=== PATIENT | male | born 1945 | race Hispanic/Latino ===

== ENCOUNTER 2017-06-23 09:00 | Inpatient (IN) | payer MEDICARE ==
[~2017-06-23] VITALS: Ht 160 cm; Wt 64.9 kg
[~2017-06-23 09:00] MED LIST: CLOP75TA32 PO; FOLI1TAB85 PO; NITR0.4T SL; PANT40TA25 PO; PIOG15TA66 PO; TRAZ-144 PO; UBID200C18 PO
[2017-06-24 10:02] LABS: APPEARANCE,URINE CLEAR (CLEAR); BILIRUBIN,URINE NEGATIVE (NEGATIVE); COLOR,URINE YELLOW (YELLOW); GLUCOSE, URINE (UA) NEGATIVE (NEGATIVE); KETONES,URINE 5 mg/dL (NEGATIVE); LEUKOCYTE ESTERASE ,URINE NEGATIVE (NEGATIVE); NITRATE,URINE NEGATIVE (NEGATIVE); OCCULT BLOOD,URINE NEGATIVE (NEGATIVE); PH,URINE 5.5 (5.0-8.0); PROTEIN,URINE NEGATIVE (NEGATIVE); UROBILINOGEN,URINE 0.2 mg/dL (0.2-1.0)
[2017-06-24 10:02] LABS: BASOPHILS % (AUTO) 0.7 % (0.0-5.0); EOSINOPHILS % (AUTO) 1.3 % (0.0-8.0); HEMATOCRIT 35.4 % (42-54); LYMPHOCYTES % (AUTO) 23.6 % (21.0-51.0); MEAN CORPUSCULAR HEMOGLOBIN 33.6 pg (27.0-33.0); MEAN CORPUSCULAR HGB CONC 35.5 g/dL (32.0-36.0); MEAN CORPUSCULAR VOLUME 94.6 fL (79-99); MONOCYTES % (AUTO) 8.9 % (3.0-13.0); NEUTROPHILS % (AUTO) 65.5 % (40.0-77.0); PLATELET COUNT (AUTO) 211 K/uL (130-400); RED BLOOD CELL COUNT(AUTO) 3.74 MIL/uL (4.50-6.20); RED CELL DISTRIBUTION WIDTH 13.7 % (11.0-15.5)
[2017-06-24 10:06] LABS: BACTERIA,URINE Rare /HPF (None Seen); RBC,URINE 0-1 /HPF (0-1); SQUAMOUS EPITHELIAL CELL,UR Rare /LPF (0-2); WBC,URINE 0-1 /HPF (0-1)
[2017-06-24 10:13] LABS: CREATININE 1.2 mg/dL (0.5-1.5); POTASSIUM 4.7 mmol/L (3.5-5.1)
[2017-06-24 10:17] VITALS: BP 148/71
[2017-06-24 10:20] LABS: INR 1.01 (0.85-1.15); PROTHROMBIN TIME 10.6 SEC (9.6-11.6)
[2017-06-24] MEDS ORDERED: METO25TA6 PO (10:44)
[2017-06-24] MEDS ORDERED: CETI10TA57 PO (10:44)
[2017-06-24] MEDS ORDERED: CYAN-35 PO (10:44)
[2017-06-24] MEDS ORDERED: ASPI-1026 PO (10:44)
[2017-06-24] MEDS ORDERED: ATOR40TA71 PO (10:44)
[2017-06-24] MEDS ORDERED: FERR325T22 PO (10:44)
[2017-06-24] MEDS ORDERED: DOCU100C33 PO (10:44)
[2017-06-24] MEDS ORDERED: METF10004 PO (10:44)
[2017-06-25] VITALS (15 sets, daily range): BP systolic 97–140; BP diastolic 44–67
[2017-06-25] MEDS ORDERED: SODIUM CHLORIDE 0.9% 1000ML 1,000 ML IV ONE ×2 (06:17→10:23)
[2017-06-25] MEDS ORDERED: SCOPOLAMINE HYDROBROMIDE 1 EACH ADH..PATCH TD ONE (06:50)
[2017-06-25] MEDS ORDERED: SUCCINYLCHOLINE 200MG/10ML SYR ONE ×2 (06:54→11:17)
[2017-06-25] MEDS ORDERED: FENTANYL CITRATE PF 50 MCG/1 ML 2ML VIAL ONE ×3 (06:54→11:20)
[2017-06-25] MEDS ORDERED: MIDAZOLAM HCL 1 MG/ML 2ML VIAL ONE ×2 (06:54→11:19)
[2017-06-25] MEDS ORDERED: ONDANSETRON HCL 4 MG/2 ML VIAL ONE ×2 (06:54→11:17)
[2017-06-25] MEDS ORDERED: DEXAMETHASONE SOD PHOSPHATE 10MG/ML 1ML VIAL ONE ×2 (06:54→11:17)
[2017-06-25] MEDS ORDERED: PROPOFOL 10 MG/ML 20ML VIAL IV ONE ×2 (06:54→11:20)
[2017-06-25] MEDS ORDERED: GLYCOPYRROLATE 0.2 MG/ML 5 ML VIAL ONE ×2 (06:54→11:17)
[2017-06-25] MEDS ORDERED: LIDOCAINE PF 2% 5ML ABBOJECT ONE ×2 (06:54→11:17)
[2017-06-25] MEDS ORDERED: NEOMY SULF/POLYMYXIN B SULFATE 1 ML AMPUL IR ONE ×3 (06:56→11:41)
[2017-06-25] MEDS ORDERED: THROMBIN-JMI 5000 UNIT/VIAL TP ONE (06:56)
[2017-06-25] MEDS ORDERED: VANCOMYCIN 1GM+NS 250ML 250 ML IV SCH ×2 (07:00→09:30)
[2017-06-25] MEDS ORDERED: ISOVUE-300 100 ML VIAL IV ONE (07:15)
[2017-06-25] MEDS ORDERED: HEPARIN SODIUM 1000UNIT/ML 10ML VIAL ONE (07:15)
[2017-06-25] MEDS ORDERED: THROMBIN-JMI 20000 UNIT KIT TP ONE ×2 (07:21→11:43)
[2017-06-25] MEDS ORDERED: ATROPINE SULFATE 0.1 MG/ML 10 ML SYG IVP ONE (09:04)
[2017-06-25] MEDS ORDERED: ONDANSETRON HCL 4 MG/2 ML VIAL IVP PRN (09:30)
[2017-06-25] MEDS ORDERED: NITROGLYCERIN 50 MG/D5% WATER 1 BOT IV PRN (09:30)
[2017-06-25] MEDS ORDERED: ACETAMINOPHEN-CODEINE 300/30MG TAB PO PRN ×2 (09:30)
[2017-06-25] MEDS ORDERED: NITROGLYCERIN 0.4 MG SL TAB SL PRN (09:30)
[2017-06-25] MEDS ORDERED: TEMAZEPAM 30 MG CAP PO PRN (09:30)
[2017-06-25] MEDS ORDERED: NEOSTIGMINE 5MG/5ML SYR IV ONE (09:33)
[2017-06-25] MEDS: SODIUM CHLORIDE 0.9% 1000ML 1,000 ML IV SCH ×2 (10:29→19:29)
[2017-06-25] MEDS ORDERED: LIDOCAINE HCL 1% 20 ML VIAL ONE (11:04)
[2017-06-25] MEDS ORDERED: NEOSTIGMINE METHYLSULFATE 1MG/ML IV ONE (11:17)
[2017-06-25] MEDS: INSULIN HUMULIN R 100 UNIT/ML 3ML SQ SCH ×3 (11:30→20:58)
[2017-06-25] MEDS ORDERED: EPHEDRINE SULFATE 50 MG/ML AMPULE ONE (11:51)
[2017-06-25] MEDS: FERROUS SULFATE 325 MG TABLET.DR PO SCH ×2 (11:55→18:14)
[2017-06-25 13:41] LABS: HEMATOCRIT 28.6 % (42-54)
[2017-06-25 14:12] LABS: INR 1.09 (0.85-1.15); PARTIAL THROMBOPLASTIN TIME 26.5 SEC (26.3-35.5); PROTHROMBIN TIME 11.4 SEC (9.6-11.6)
[2017-06-25] MEDS: METFORMIN HCL 500 MG TABLET PO SCH (18:14)
[2017-06-25] MEDS: DOCUSATE SODIUM 100 MG CAP PO SCH (20:01)
[2017-06-25] MEDS: METOPROLOL TARTRATE 25 MG TAB PO SCH (20:01)
[2017-06-25] MEDS: UBIDECARENONE 200 MG PO SCH (20:02)
[2017-06-25] MEDS ORDERED: CLOPIDOGREL BISULFATE 75 MG TAB PO SCH (21:00)
[2017-06-25] MEDS ORDERED: ATORVASTATIN CALCIUM 40 MG TABLET PO SCH (21:00)
[2017-06-25] MEDS ORDERED: CETIRIZINE HCL 5 MG TABLET PO SCH (21:00)
[2017-06-25] MEDS ORDERED: TRAZODONE HCL 50 MG TAB PO SCH (21:00)
[2017-06-26] VITALS (15 sets, daily range): BP systolic 98–137; BP diastolic 47–66
[2017-06-26 03:56] LABS: MEAN CORPUSCULAR HEMOGLOBIN 32.3 pg (27.0-33.0); MEAN CORPUSCULAR HGB CONC 33.9 g/dL (32.0-36.0); MEAN CORPUSCULAR VOLUME 95.1 fL (79-99); PLATELET COUNT (AUTO) 155 K/uL (130-400); RED BLOOD CELL COUNT(AUTO) 2.74 MIL/uL (4.50-6.20); RED CELL DISTRIBUTION WIDTH 13.4 % (11.0-15.5); WHITE BLOOD COUNT (AUTO) 9.4 K/uL (4.8-10.8)
[2017-06-26 04:15] LABS: CREATININE 1.1 mg/dL (0.5-1.5); POTASSIUM 4.4 mmol/L (3.5-5.1)
[2017-06-26] MEDS: SODIUM CHLORIDE 0.9% 1000ML 1,000 ML IV SCH (05:29)
[2017-06-26] MEDS: INSULIN HUMULIN R 100 UNIT/ML 3ML SQ SCH ×2 (05:56→11:30)
[2017-06-26] MEDS ORDERED: PANTOPRAZOLE SODIUM 40 MG TABLET.DR PO SCH (07:30)
[2017-06-26] MEDS: FERROUS SULFATE 325 MG TABLET.DR PO SCH ×2 (08:36→12:00)
[2017-06-26] MEDS: METOPROLOL TARTRATE 25 MG TAB PO SCH (08:36)
[2017-06-26] MEDS: METFORMIN HCL 500 MG TABLET PO SCH (08:36)
[2017-06-26] MEDS: DOCUSATE SODIUM 100 MG CAP PO SCH (08:37)
[2017-06-26] MEDS: UBIDECARENONE 200 MG PO SCH (08:42)
[2017-06-26] MEDS ORDERED: VITAMIN B COMPLEX 1 CAPSULE PO SCH (09:00)
[2017-06-26] MEDS ORDERED: ASPIRIN 325 MG TABLET PO SCH (09:00)
[2017-06-26] MEDS ORDERED: ASPIRIN 81MG TAB.CHEW PO SCH (09:00)
[2017-06-26] MEDS ORDERED: PIOGLITAZONE HCL 15 MG TAB PO SCH (09:00)
[2017-06-26] MEDS ORDERED: CYANOCOBALAMIN (VITAMIN B-12) 1,000 MCG TABLET PO SCH (09:00)
[2017-06-26] MEDS ORDERED: ASPI-555 PO ×2 (14:08→14:10)
== END 2017-06-26 15:00 | disposition home or self-care (01) | DRG 35 ==
LOC: EDSTATUS 06-24 12:00 → DAHIP 06-25 05:38 → 2BH 06-25 10:17
PROVIDERS: ADMIT Internal Medicine Cardiovascular Disease; ATTEND Internal Medicine Cardiovascular Disease
PROC: 0WJ60ZZ Inspection of Neck, Open Approach (ICD-10-PCS; 2017-06-25)
PROC: 0W360ZZ Control Bleeding in Neck, Open Approach (ICD-10-PCS; 2017-06-25)
PROC: 0W9600Z Drainage of Neck with Drainage Device, Open Approach (ICD-10-PCS; 2017-06-25)
PROC: 0HC4XZZ Extirpation of Matter from Neck Skin, External Approach (ICD-10-PCS; principal; 2017-06-25 08:00)
PROC: 037K3DZ Dilation of Right Internal Carotid Artery with Intraluminal Device, Percutaneous Approach (ICD-10-PCS; 2017-06-25 08:00)
DX: I65.23 Occlusion and stenosis of bilateral carotid arteries (principal); L76.22 Postprocedural hemorrhage of skin and subcutaneous tissue following other procedure; E11.22 Type 2 diabetes mellitus with diabetic chronic kidney disease; E78.5 Hyperlipidemia, unspecified; I12.9 Hypertensive chronic kidney disease with stage 1 through stage 4 chronic kidney disease, or unspecified chronic kidney disease; I25.10 Atherosclerotic heart disease of native coronary artery without angina pectoris; N18.9 Chronic kidney disease, unspecified; H40.9 Unspecified glaucoma; I65.21 Occlusion and stenosis of right carotid artery; Z86.73 Personal history of transient ischemic attack (TIA), and cerebral infarction without residual deficits; Z95.1 Presence of aortocoronary bypass graft; Z95.0 Presence of cardiac pacemaker; Z88.8 Allergy status to other drugs, medicaments and biological substances; Z83.3 Family history of diabetes mellitus; Z82.49 Family history of ischemic heart disease and other diseases of the circulatory system
CPT/HCPCS: 36415; 37215; 71045; 80048; 80061; 81001; 82948; 85025; 85027; 85347; 85610; 85730; 86850; 86900; 86901; 93005; C1725; C1894; J0330; J0461; J1100; J1644; J2001; J2250; J2405; J2704; J2710; J3010; J3370; J3490; J7030; Q9967

== ENCOUNTER → 2018-02-12 | Outpatient (CLI) | payer OTHER ==
[~2018-02-12] MED LIST changes: +ASPI-555 PO; +ATOR40TA71 PO; +CETI10TA57 PO; +CYAN-35 PO; +DOCU100C33 PO; +FERR325T22 PO; +METF-446 PO; +METO25TA6 PO; -TRAZ-144 PO; +TRAZ-185 PO
== END | disposition home or self-care (01) ==
LOC: SHCH 08:04
PROVIDERS: ATTEND Internal Medicine Cardiovascular Disease
DX: I73.9 Peripheral vascular disease, unspecified (principal)
CPT/HCPCS: 93925

== ENCOUNTER 2018-09-19 10:32 | Emergency (ER) | payer OTHER ==
[2018-09-19] MEDS ORDERED: ONDANSETRON HCL 4 MG/2 ML VIAL ONE (11:08)
[2018-09-19] MEDS ORDERED: MORPHINE SULFATE 4 MG/1ML SYG ONE (11:08)
[2018-09-19 11:33] LABS: BASOPHILS % (AUTO) 0.7 % (0.0-5.0); EOSINOPHILS % (AUTO) 1.1 % (0.0-8.0); LYMPHOCYTES % (AUTO) 19.6 % (21.0-51.0); MEAN CORPUSCULAR HEMOGLOBIN 33.4 pg (27.0-33.0); MEAN CORPUSCULAR HGB CONC 34.9 g/dL (32.0-36.0); MEAN CORPUSCULAR VOLUME 95.6 fL (79-99); MONOCYTES % (AUTO) 8.9 % (3.0-13.0); NEUTROPHILS % (AUTO) 69.7 % (40.0-77.0); NUCLEATED RED BLOOD CELLS 0.1 % (0.0-0.19); PLATELET COUNT (AUTO) 191 K/uL (130-400); RED BLOOD CELL COUNT(AUTO) 4.19 MIL/uL (4.50-6.20); RED CELL DISTRIBUTION WIDTH 13.3 % (11.0-15.5); WHITE BLOOD COUNT (AUTO) 5.9 K/uL (4.8-10.8)
[2018-09-19 12:06] LABS: CREATININE 1.2 mg/dL (0.5-1.5); POTASSIUM 3.9 mmol/L (3.5-5.1)
[2018-09-19 12:11] LABS: ALBUMIN 3.8 g/dL (3.5-5.0); BILIRUBIN,TOTAL 0.5 mg/dL (0.2-1.0); TOTAL PROTEIN, SERUM 7.3 g/dL (6.0-8.3)
[2018-09-19] MEDS ORDERED: KETOROLAC TROMETHAMINE 15MG/ML ONE (12:31)
[2018-09-19 12:42] LABS: APPEARANCE,URINE Clear (CLEAR); BILIRUBIN,URINE Negative (NEGATIVE); COLOR,URINE Yellow (YELLOW); GLUCOSE, URINE (UA) TRACE mg/dL (NEGATIVE); KETONES,URINE Negative (NEGATIVE); LEUKOCYTE ESTERASE ,URINE Negative (NEGATIVE); NITRATE,URINE Negative (NEGATIVE); OCCULT BLOOD,URINE Negative (NEGATIVE); PROTEIN,URINE Negative (NEGATIVE); UROBILINOGEN,URINE 0.2 mg/dL (0.2-1.0)
[2018-09-19 13:38] LABS: BACTERIA,URINE Rare /HPF (None Seen); RBC,URINE 0-1 /HPF (0-1); SQUAMOUS EPITHELIAL CELL,UR Rare /HPF (0-2); WBC,URINE 0-1 /HPF (0-1)
== END 2018-09-19 13:37 | disposition home or self-care (01) ==
LOC: EDH 10:32
DX: M48.061 Spinal stenosis, lumbar region without neurogenic claudication (principal); E11.9 Type 2 diabetes mellitus without complications; I10 Essential (primary) hypertension; I25.10 Atherosclerotic heart disease of native coronary artery without angina pectoris; E78.5 Hyperlipidemia, unspecified; Z95.1 Presence of aortocoronary bypass graft; Z88.0 Allergy status to penicillin; Z88.8 Allergy status to other drugs, medicaments and biological substances
CPT/HCPCS: 36415; 72131; 80053; 81001; 85025; 96374; 96375 ×2; 99285; J1885; J2270; J2405

== ENCOUNTER → 2018-12-21 | Outpatient (CLI) | payer OTHER | END | disposition home or self-care (01) | LOC: SHCH 14:31 | PROVIDERS: ATTEND Internal Medicine Cardiovascular Disease | DX: I65.23 Occlusion and stenosis of bilateral carotid arteries (principal) | CPT/HCPCS: 93880 ==

== ENCOUNTER → 2019-06-03 | Outpatient (CLI) | payer OTHER | END | disposition home or self-care (01) | LOC: SHCH 10:00 | PROVIDERS: ATTEND Internal Medicine Cardiovascular Disease | DX: I65.23 Occlusion and stenosis of bilateral carotid arteries (principal); Z95.818 Presence of other cardiac implants and grafts | CPT/HCPCS: 93880 ==

== ENCOUNTER → 2020-02-28 | Outpatient (CLI) | payer OTHER ==
[~2020-02-28] MED LIST changes: -ASPI-555 PO; +ASPI-556 PO; -PANT40TA25 PO; +PANT40TA54 PO
== END | disposition home or self-care (01) ==
LOC: SHCH 08:39
PROVIDERS: ATTEND Internal Medicine Cardiovascular Disease
DX: I07.1 Rheumatic tricuspid insufficiency (principal); I25.10 Atherosclerotic heart disease of native coronary artery without angina pectoris; R55 Syncope and collapse
CPT/HCPCS: 93306; 93356

== ENCOUNTER → 2020-08-01 | Outpatient (CLI) | payer OTHER | END | disposition home or self-care (01) | LOC: SHCH 15:09 | PROVIDERS: ATTEND Internal Medicine Cardiovascular Disease | DX: I65.23 Occlusion and stenosis of bilateral carotid arteries (principal) | CPT/HCPCS: 93880 ==

== ENCOUNTER 2022-04-14 15:07 | Observation (INO) | payer OTHER ==
[~2022-04-14] VITALS: Ht 160 cm; Wt 77.7 kg
[2022-04-14 16:35] LABS: BASOPHILS % (AUTO) 0.1 % (0.0-5.0); HEMATOCRIT 37.8 % (42-54); LYMPHOCYTES % (AUTO) 4.5 % (21.0-51.0); MEAN CORPUSCULAR HEMOGLOBIN 32.9 pg (27.0-33.0); MEAN CORPUSCULAR HGB CONC 34.7 g/dL (32.0-36.0); MONOCYTES % (AUTO) 7.8 % (3.0-13.0); NEUTROPHILS % (AUTO) 87.1 % (40.0-77.0); PLATELET COUNT (AUTO) 167 K/uL (130-400); RED BLOOD CELL COUNT(AUTO) 3.98 MIL/uL (4.50-6.20); RED CELL DISTRIBUTION WIDTH 14.1 % (11.0-15.5); WHITE BLOOD COUNT (AUTO) 17.7 K/uL (4.8-10.8)
[2022-04-14 16:41] LABS: APPEARANCE,URINE CLEAR (CLEAR); BILIRUBIN,URINE NEGATIVE (NEGATIVE); COLOR,URINE YELLOW (YELLOW); GLUCOSE, URINE (UA) >=1000 mg/dL (NEGATIVE); KETONES,URINE NEGATIVE (NEGATIVE); LEUKOCYTE ESTERASE ,URINE 75 Leu/uL (NEGATIVE); NITRATE,URINE NEGATIVE (NEGATIVE); OCCULT BLOOD,URINE SMALL (NEGATIVE); PROTEIN,URINE NEGATIVE (NEGATIVE); UROBILINOGEN,URINE 0.2 mg/dL (0.2-1.0)
[2022-04-14 16:45] LABS: CREATININE 1.7 mg/dL (0.5-1.5); POTASSIUM 3.7 mmol/L (3.5-5.1)
[2022-04-14 16:49] LABS: ALBUMIN 3.7 g/dL (3.5-5.0); TOTAL PROTEIN, SERUM 7.3 g/dL (6.0-8.3)
[2022-04-14 16:55] LABS: BACTERIA,URINE RARE /HPF (None Seen); WBC,URINE 26-50 /HPF (0-1)
[2022-04-14] MEDS ORDERED: 0.9%NACL 1000ML 1,000 ML IV ONE (18:00)
[2022-04-14] MEDS ORDERED: CEFTRIAXONE 1G VIAL IVP ONE (18:00)
[2022-04-14] MEDS ORDERED: ONDANSETRON 4MG INJ IV PRN (19:00)
[2022-04-14] MEDS ORDERED: ACETAMINOPHEN 325 MG TAB PO PRN (19:00)
[2022-04-14 19:15] LABS: HEMOGLOBIN A1C 5.7 % (4.0-6.0)
[2022-04-14] MEDS: 0.9%NACL 1000ML 1,000 ML IV SCH (20:07)
[2022-04-14] MEDS: FAMOTIDINE 20MG VIAL IV SCH (21:40)
[2022-04-14] MEDS ORDERED: ATOR40TA71 PO (23:00)
[2022-04-14] MEDS ORDERED: FOLI0.8T2 PO (23:00)
[2022-04-14] MEDS ORDERED: METO50TA18 PO (23:00)
[2022-04-14] MEDS ORDERED: CLOP75TA32 PO (23:00)
[2022-04-14] MEDS ORDERED: CILO50TA2 PO (23:00)
[2022-04-14] MEDS ORDERED: DONE10TA43 PO (23:00)
[2022-04-14] MEDS ORDERED: TRAZ-185 PO (23:00)
[2022-04-14] MEDS ORDERED: MEMA10TA55 PO (23:00)
[2022-04-14] MEDS ORDERED: PANT40TA54 PO (23:00)
[2022-04-14] MEDS ORDERED: ESCI20TA38 PO (23:00)
[2022-04-14] MEDS ORDERED: FERR-72 PO (23:00)
[2022-04-14] MEDS ORDERED: EMPA10TA PO (23:00)
[2022-04-14] MEDS ORDERED: SOLI5TAB6 PO (23:00)
[2022-04-14] MEDS ORDERED: ASPI-1197 PO (23:00)
[2022-04-14] MEDS ORDERED: VALS80TA30 PO (23:00)
[2022-04-14] MEDS: LEVOFLOXACIN 500 MG/D5W 100 ML 100 ML IV SCH (23:05)
[2022-04-15] MEDS: 0.9%NACL 1000ML 1,000 ML IV SCH ×2 (06:33→17:29)
[2022-04-15] MEDS: INSULIN HUMULIN R 100 UNIT/ML 3ML SQ SCH ×4 (07:24→20:09)
[2022-04-15 08:14] LABS: BASOPHILS % (AUTO) 0.2 % (0.0-5.0); HEMATOCRIT 34.8 % (42-54); LYMPHOCYTES % (AUTO) 5.6 % (21.0-51.0); MEAN CORPUSCULAR HEMOGLOBIN 32.7 pg (27.0-33.0); MEAN CORPUSCULAR HGB CONC 33.6 g/dL (32.0-36.0); MEAN CORPUSCULAR VOLUME 97.2 fL (79-99); MONOCYTES % (AUTO) 5.8 % (3.0-13.0); PLATELET COUNT (AUTO) 134 K/uL (130-400); RED BLOOD CELL COUNT(AUTO) 3.58 MIL/uL (4.50-6.20); RED CELL DISTRIBUTION WIDTH 14.1 % (11.0-15.5); WHITE BLOOD COUNT (AUTO) 15.1 K/uL (4.8-10.8)
[2022-04-15 08:21] LABS: CREATININE 1.4 mg/dL (0.5-1.5); POTASSIUM 4.5 mmol/L (3.5-5.1); TOTAL PROTEIN, SERUM 6.6 g/dL (6.0-8.3)
[2022-04-15] MEDS: ACETAMINOPHEN 325 MG TAB PO PRN ×2 (08:27→21:37)
[2022-04-15 08:40] VITALS: BP 105/64
[2022-04-15 11:30] VITALS: BP 99/56
[2022-04-15] MEDS: ENOXAPARIN SODIUM 30 MG/0.3 ML SQ SCH (11:37)
[2022-04-15 16:00] VITALS: BP 126/60
[2022-04-15 20:00] VITALS: BP 142/60
[2022-04-15] MEDS: FAMOTIDINE 20MG VIAL IV SCH (21:36)
[2022-04-15] MEDS: LEVOFLOXACIN 500 MG/D5W 100 ML 100 ML IV SCH (22:45)
[2022-04-16] VITALS: BP 133/67
[2022-04-16] MEDS: 0.9%NACL 1000ML 1,000 ML IV SCH (00:07)
[2022-04-16 04:00] VITALS: BP 157/66
[2022-04-16 05:14] LABS: BASOPHILS % (AUTO) 0.2 % (0.0-5.0); EOSINOPHILS % (AUTO) 0.1 % (0.0-8.0); HEMATOCRIT 32.4 % (42-54); LYMPHOCYTES % (AUTO) 6.8 % (21.0-51.0); MEAN CORPUSCULAR HEMOGLOBIN 32.7 pg (27.0-33.0); MEAN CORPUSCULAR HGB CONC 34.6 g/dL (32.0-36.0); MEAN CORPUSCULAR VOLUME 94.7 fL (79-99); MONOCYTES % (AUTO) 5.9 % (3.0-13.0); NEUTROPHILS % (AUTO) 86.3 % (40.0-77.0); PLATELET COUNT (AUTO) 118 K/uL (130-400); RED BLOOD CELL COUNT(AUTO) 3.42 MIL/uL (4.50-6.20); RED CELL DISTRIBUTION WIDTH 14.2 % (11.0-15.5); WHITE BLOOD COUNT (AUTO) 10.1 K/uL (4.8-10.8)
[2022-04-16 05:32] LABS: ALBUMIN 2.4 g/dL (3.5-5.0); CREATININE 1.2 mg/dL (0.5-1.5); MAGNESIUM 1.6 mg/dL (1.80-2.40); POTASSIUM 3.5 mmol/L (3.5-5.1)
[2022-04-16] MEDS: INSULIN HUMULIN R 100 UNIT/ML 3ML SQ SCH ×3 (07:30→16:30)
[2022-04-16 08:00] VITALS: BP 165/63
[2022-04-16] MEDS: ENOXAPARIN SODIUM 30 MG/0.3 ML SQ SCH (09:02)
[2022-04-16 11:00] VITALS: BP 164/91
[2022-04-16] MEDS ORDERED: MAGNESIUM OXIDE 400 MG TABLET PO SCH (12:00)
[2022-04-16] MEDS ORDERED: NITROGLYCERIN 0.4 MG SL TAB SL PRN (12:00)
[2022-04-16] MEDS ORDERED: METOPROLOL TARTRATE 50 MG TAB PO SCH (12:00)
[2022-04-16] MEDS ORDERED: PANTOPRAZOLE 40 MG TAB DR PO SCH (12:30)
[2022-04-16] MEDS ORDERED: EMPAGLIFLOZIN 10 MG PO SCH (12:34)
[2022-04-16] MEDS ORDERED: FERROUS SULFATE 325 MG TABLET.DR PO SCH (12:37)
[2022-04-16] MEDS ORDERED: LEVO-70 PO (17:19)
[2022-04-16] MEDS ORDERED: METOPROLOL TARTRATE 25 MG TAB PO SCH (21:00)
[2022-04-16] MEDS ORDERED: MEMANTINE HCL 5 MG TABLET PO SCH (21:00)
[2022-04-16] MEDS ORDERED: TRAZODONE HCL 50 MG TAB PO SCH (21:00)
[2022-04-16] MEDS ORDERED: DOCUSATE SODIUM 100 MG CAP PO SCH (21:00)
[2022-04-16] MEDS ORDERED: DONEPEZIL HCL 5 MG TAB PO SCH (21:00)
[2022-04-17] MEDS ORDERED: ASPIRIN 81MG CHEW TAB PO SCH (09:00)
[2022-04-17] MEDS ORDERED: CLOPIDOGREL 75MG TAB PO SCH (09:00)
[2022-04-17] MEDS ORDERED: ATORVASTATIN 40 MG TABLET PO SCH (09:00)
[2022-04-17] MEDS ORDERED: SOLIFENACIN SUCCINATE 5 MG PO SCH (09:00)
[2022-04-17] MEDS ORDERED: CILOSTAZOL 100 MG TAB PO SCH (09:00)
[2022-04-17] MEDS ORDERED: CITALOPRAM 20 MG TABLET PO SCH (09:00)
[2022-04-17] MEDS ORDERED: LOSARTAN 50 MG TABLET PO SCH (09:00)
[2022-04-17] MEDS ORDERED: Vitamin B Complex/Vit C/Folic Acid PO SCH (09:00)
== END 2022-04-16 17:54 | disposition home or self-care (01) ==
LOC: EDH 15:07 → INTOOBSV 18:45 → EDHIP 18:45 → 3AH 04-15 08:23
PROVIDERS: ADMIT Hospitalist; ATTEND Hospitalist
DX: N39.0 Urinary tract infection, site not specified (principal); E86.9 Volume depletion, unspecified; R53.1 Weakness; E11.65 Type 2 diabetes mellitus with hyperglycemia; I25.10 Atherosclerotic heart disease of native coronary artery without angina pectoris; I10 Essential (primary) hypertension; D64.9 Anemia, unspecified; I65.29 Occlusion and stenosis of unspecified carotid artery; E78.5 Hyperlipidemia, unspecified; E78.00 Pure hypercholesterolemia, unspecified; R32 Unspecified urinary incontinence; Z79.82 Long term (current) use of aspirin; Z86.73 Personal history of transient ischemic attack (TIA), and cerebral infarction without residual deficits; Z87.891 Personal history of nicotine dependence; Z88.0 Allergy status to penicillin; Z79.84 Long term (current) use of oral hypoglycemic drugs; Z95.1 Presence of aortocoronary bypass graft; W18.30XA Fall on same level, unspecified, initial encounter
CPT/HCPCS: 96361 ×2; 96365; 96375; 99285; 83036; 84484; 80053 ×3; 83880; 85025 ×3; 87077; 87088; 87186; 81001; 36415 ×3; 71045; 70450; 76770; 93005; 84145; 96376; 96372 ×2; 96366; 85651; 82948 ×7; 83735; J3490 ×2; J1956 ×2; J0696; J1650 ×2; G0378 ×3

== ENCOUNTER 2022-10-31 13:39 | Observation (INO) | payer OTHER ==
[~2022-10-31] VITALS: Ht 160 cm; Wt 58.9 kg
[~2022-10-31 13:39] MED LIST changes: +ASPI-1197 PO; -ASPI-556 PO; -CETI10TA57 PO; +CILO50TA2 PO; -CYAN-35 PO; +DONE10TA43 PO; +EMPA10TA PO; +ESCI20TA38 PO; +FERR-72 PO; -FERR325T22 PO; +FOLI0.8T2 PO; -FOLI1TAB85 PO; +LEVO-70 PO; +MEMA10TA55 PO; -METF-446 PO; -METO25TA6 PO; +METO50TA18 PO; -NITR0.4T SL; -PIOG15TA66 PO; +SOLI5TAB6 PO; -UBID200C18 PO; +VALS80TA30 PO
[2022-10-31 15:34] LABS: BASOPHILS % (AUTO) 0.4 % (0.0-5.0); EOSINOPHILS % (AUTO) 0.9 % (0.0-8.0); HEMATOCRIT 35.6 % (42-54); LYMPHOCYTES % (AUTO) 7.2 % (21.0-51.0); MEAN CORPUSCULAR HEMOGLOBIN 32.8 pg (27.0-33.0); MEAN CORPUSCULAR HGB CONC 33.1 g/dL (32.0-36.0); MEAN CORPUSCULAR VOLUME 98.9 fL (79-99); MONOCYTES % (AUTO) 5.2 % (3.0-13.0); NEUTROPHILS % (AUTO) 85.4 % (40.0-77.0); PLATELET COUNT (AUTO) 207 K/uL (130-400); RED CELL DISTRIBUTION WIDTH 13.6 % (11.0-15.5); WHITE BLOOD COUNT (AUTO) 14.2 K/uL (4.8-10.8)
[2022-10-31 15:43] LABS: CREATININE 2.3 mg/dL (0.5-1.5); POTASSIUM 5.7 mmol/L (3.5-5.1)
[2022-10-31 15:48] LABS: ALBUMIN 3.5 g/dL (3.5-5.0); TOTAL PROTEIN, SERUM 6.9 g/dL (6.0-8.3)
[2022-10-31 15:54] LABS: INR 0.99 (0.85-1.15); PROTHROMBIN TIME 10.8 SEC (9.6-11.6)
[2022-10-31 15:55] LABS: PARTIAL THROMBOPLASTIN TIME 24.1 SEC (26.3-35.5)
[2022-10-31] MEDS ORDERED: GLUCAGON 1MG KIT 1 MG ML IM PRN (17:30)
[2022-10-31] MEDS ORDERED: HYDRALAZINE 20MG/ML VIAL IV PRN (17:30)
[2022-10-31] MEDS ORDERED: ONDANSETRON 4MG INJ IVP PRN (17:30)
[2022-10-31] MEDS ORDERED: DEXTROSE 50%-WATER 50 ML DISP.SYRIN IV PRN (17:30)
[2022-10-31] MEDS ORDERED: LEVOFLOXACIN 500 MG/D5W 100 ML 100 ML IV SCH (17:30)
[2022-10-31] MEDS ORDERED: MAGNESIUM 2GM PREMIX 50ML 50 ML IV PRN (17:30)
[2022-10-31] MEDS ORDERED: ACETAMINOPHEN 325 MG TAB PO PRN (17:30)
[2022-10-31] MEDS ORDERED: KAYEXALATE 15GM/60ML PO SCH (17:30)
[2022-10-31] MEDS: 0.9%NACL 1000ML 1,000 ML IV SCH (17:46)
[2022-10-31 18:05] LABS: APPEARANCE,URINE CLEAR (CLEAR); BILIRUBIN,URINE NEGATIVE (NEGATIVE); COLOR,URINE LIGHT-YELLOW (YELLOW); GLUCOSE, URINE (UA) >=1000 mg/dL (NEGATIVE); KETONES,URINE NEGATIVE (NEGATIVE); LEUKOCYTE ESTERASE ,URINE NEGATIVE Leu/uL (NEGATIVE); NITRATE,URINE NEGATIVE (NEGATIVE); OCCULT BLOOD,URINE NEGATIVE (NEGATIVE); PROTEIN,URINE NEGATIVE (NEGATIVE); UROBILINOGEN,URINE 0.2 mg/dL (0.2-1.0)
[2022-10-31 18:11] LABS: MUCUS,URINE RARE LPF (None Seen); WBC,URINE 0-1 /HPF (0-1)
[2022-10-31] MEDS: PANTOPRAZOLE 40 MG/VIAL IVP SCH (20:59)
[2022-10-31] MEDS: INSULIN HUMULIN R 100 UNIT/ML 3ML SQ SCH (21:00)
[2022-10-31] MEDS ORDERED: UBID200C18 PO (21:07)
[2022-10-31] MEDS ORDERED: METF-910 PO (21:07)
[2022-10-31] MEDS ORDERED: NITR0.4T50 SL (21:07)
[2022-10-31 22:20] VITALS: BP 161/86
[2022-11-01] VITALS: BP 161/86
[2022-11-01 04:00] VITALS: BP 183/85
[2022-11-01] MEDS: 0.9%NACL 1000ML 1,000 ML IV SCH (04:15)
[2022-11-01 05:10] LABS: BASOPHILS % (AUTO) 0.4 % (0.0-5.0); HEMATOCRIT 31.4 % (42-54); LYMPHOCYTES % (AUTO) 20.3 % (21.0-51.0); MEAN CORPUSCULAR HEMOGLOBIN 32.4 pg (27.0-33.0); MEAN CORPUSCULAR HGB CONC 33.1 g/dL (32.0-36.0); MEAN CORPUSCULAR VOLUME 97.8 fL (79-99); MONOCYTES % (AUTO) 8.6 % (3.0-13.0); NEUTROPHILS % (AUTO) 67.3 % (40.0-77.0); PLATELET COUNT (AUTO) 176 K/uL (130-400); RED BLOOD CELL COUNT(AUTO) 3.21 MIL/uL (4.50-6.20); RED CELL DISTRIBUTION WIDTH 13.3 % (11.0-15.5); WHITE BLOOD COUNT (AUTO) 7.5 K/uL (4.8-10.8)
[2022-11-01 05:36] LABS: ALBUMIN 3.1 g/dL (3.5-5.0); CREATININE 1.4 mg/dL (0.5-1.5); POTASSIUM 4.6 mmol/L (3.5-5.1); TOTAL PROTEIN, SERUM 6.3 g/dL (6.0-8.3)
[2022-11-01] MEDS: INSULIN HUMULIN R 100 UNIT/ML 3ML SQ SCH ×2 (06:06→11:30)
[2022-11-01 08:00] VITALS: BP 175/72
[2022-11-01] MEDS ORDERED: AMLODIPINE 5 MG TAB PO SCH (09:00)
[2022-11-01] MEDS: PANTOPRAZOLE 40 MG/VIAL IVP SCH (09:33)
[2022-11-01 12:00] VITALS: BP 148/76
[2022-11-01] MEDS ORDERED: METOPROLOL TARTRATE 50 MG TAB PO SCH (21:00)
== END 2022-11-01 16:50 | disposition home or self-care (01) ==
LOC: EDH 13:39 → EDHIP 17:04 → INTOOBSV 17:04 → 4BH 21:51
PROVIDERS: ADMIT Internal Medicine; ATTEND Internal Medicine
DX: K62.5 Hemorrhage of anus and rectum (principal); D72.829 Elevated white blood cell count, unspecified; D64.9 Anemia, unspecified; N17.9 Acute kidney failure, unspecified; E87.5 Hyperkalemia; E11.65 Type 2 diabetes mellitus with hyperglycemia; I10 Essential (primary) hypertension; I25.10 Atherosclerotic heart disease of native coronary artery without angina pectoris; N28.9 Disorder of kidney and ureter, unspecified; I63.9 Cerebral infarction, unspecified; E86.9 Volume depletion, unspecified; K64.9 Unspecified hemorrhoids; E78.5 Hyperlipidemia, unspecified; Z79.02 Long term (current) use of antithrombotics/antiplatelets; Z79.82 Long term (current) use of aspirin; Z86.73 Personal history of transient ischemic attack (TIA), and cerebral infarction without residual deficits; Z87.891 Personal history of nicotine dependence; Z95.0 Presence of cardiac pacemaker; Z95.1 Presence of aortocoronary bypass graft; Z95.5 Presence of coronary angioplasty implant and graft; Z79.899 Other long term (current) drug therapy; Z98.890 Other specified postprocedural states; Z79.84 Long term (current) use of oral hypoglycemic drugs; Y83.8 Other surgical procedures as the cause of abnormal reaction of the patient, or of later complication, without mention of misadventure at the time of the procedure
CPT/HCPCS: 96365; 96375; 99285; 80053 ×2; 84300; 85025 ×2; 85610; 85730; 85014; 85018; 86850; 86900; 86901; 82948 ×3; 83935; 82270; 81001; 36415 ×2; 76770; 96376; 96361; J1956; C9113 ×2; A4600; G0378 ×8

== ENCOUNTER → 2023-12-01 | Outpatient (CLI) | payer OTHER ==
[~2023-12-01] MED LIST changes: -FERR-72 PO; -LEVO-70 PO; +MEMA10TA21 PO; -MEMA10TA55 PO; +METF-910 PO; +NITR0.4T50 SL; +UBID200C18 PO
== END | disposition home or self-care (01) ==
LOC: SHCH 15:19
PROVIDERS: ATTEND Internal Medicine Cardiovascular Disease
DX: I08.0 Rheumatic disorders of both mitral and aortic valves (principal); I25.10 Atherosclerotic heart disease of native coronary artery without angina pectoris; Z95.0 Presence of cardiac pacemaker; Z95.1 Presence of aortocoronary bypass graft
CPT/HCPCS: 93306

== ENCOUNTER → 2023-12-05 | Outpatient (CLI) | payer OTHER ==
[2023-12-05] MEDS: REGADENOSON 0.4 MG/5 ML PF SYG IVP ONE (11:37)
== END | disposition home or self-care (01) ==
LOC: SHCH 07:36
PROVIDERS: ATTEND Internal Medicine Cardiovascular Disease
DX: I25.10 Atherosclerotic heart disease of native coronary artery without angina pectoris (principal)
CPT/HCPCS: 78452; 93017; J2785; A9500 ×2; 96374